=== PATIENT | female | born 1935 | race Caucasian/White ===

== ENCOUNTER 2018-07-21 09:57 | Inpatient (IN) | payer OTHER ==
[2018-07-21 10:17] LABS: Arterial Blood Carboxyhemoglob 0.6 % (0-1.5); Blood Gas Oxyhemoglobin 97.5 % (94-97); Blood O2 Saturation 99.2 % (92-98.5)
[2018-07-21] MEDS ORDERED: NA CHLORIDE 0.9% 1,000 ML ONE ×3 (10:22→11:52)
[2018-07-21 10:27] LABS: Absolute Lymphocytes (CBC) 1.5 K/uL (0.7-4.9); Absolute Monocytes 0.3 K/uL (0.1-1.3); Absolute Neutrophil 12.3 K/uL (1.8-8.0); Basophils % 0.3 % (0-1.3); Hematocrit 39.2 % (36.0-45.0); Lymphocytes % 10.3 % (15.3-44.8); MCV 91.8 fL (80-100); Monocytes % 2.1 % (3.3-12.3); RBC Red Blood Cell Count 4.27 M/uL (3.86-4.86)
[2018-07-21 10:28] LABS: Protime INR 1.08
--- NOTE | 2018-07-21 10:36 | RAD REPORT ---
EXAM DESCRIPTION: RAD - Chest Single View - 07/21/2018 10:27 am CLINICAL HISTORY: MALAISE Chest pain. COMPARISON: CHEST SINGLE VIEW dated 12/05/2015; CHEST SINGLE VIEW dated 12/04/2015; CHEST SINGLE VIEW da gretchen 12/23/2008; CHEST SINGLE VIEW dated 05/29/2004 FINDINGS: Portable technique limits examination quality. Emphysematous changes are present throughout the lungs. The heart is normal in size. No displaced fra ctures. IMPRESSION: COPD.
--- NOTE | 2018-07-21 10:37 | RAD REPORT ---
EXAM DESCRIPTION: RAD - Pelvis - 07/21/2018 10:27 am CLINICAL HISTORY: PAIN COMPARISON: No comparisons FINDINGS: The bones are osteopenic. No acute fracture or dislocation is seen. No aggressive marrow l esion.
--- NOTE | 2018-07-21 10:38 | RAD REPORT ---
EXAM DESCRIPTION: RAD - Knee Left 3 View - 07/21/2018 10:32 am CLINICAL HISTORY: PAIN COMPARISON: No comparisons FINDINGS: Diffuse osteopenia is seen. No acute fracture or dislocation identified. No significant elisha int effusion suspected.
[2018-07-21 10:44] LABS: Urine Blood 1+ (NEG); Urine Glucose NEGATIVE (NEG); Urine Protein NEGATIVE (NEG); Urine pH 5.5 (5.0-7.0)
[2018-07-21 10:50] LABS: Urine Bacteria 20-50 /HPF (<20); Urine Culture Reflex Order REFLEXED; Urine Mucus HEAVY /HPF (NONE SEEN); Urine RBC NONE SEEN /HPF (NONE SEEN)
[2018-07-21 11:04] LABS: ALT/SGPT 40 U/L (12-78); AST/SGOT 71 U/L (15-37); Albumin 3.7 g/dL (3.4-5.0); Alkaline Phosphatase 80 U/L (45-117); BUN Blood Urea Nitrogen 29 mg/dL (7-18); Bicarbonate 29 mmol/L (21-32); Bilirubin Direct 0.1 mg/dL (0-0.2); Bilirubin Total 0.4 mg/dL (0.2-1.0); Glucose Level 183 mg/dL (74-106); Lipase 92 U/L (73-393); Potassium 4.7 mmol/L (3.5-5.1); Protein, Total 7.6 g/dL (6.4-8.2); Sodium Level 137 mmol/L (136-145); Troponin (Emerg Dept Use Only) < 0.02 ng/mL (0.0-0.045)
[2018-07-21 11:08] LABS: Creatine Phosphokinase 1766 U/L (26-192)
--- NOTE | 2018-07-21 11:10 | RAD REPORT ---
EXAM DESCRIPTION: CT - [id number] - 07/21/2018 10:53 am CLINICAL HISTORY: Trauma, head and neck injury. PAIN COMPARISON: No comparisons TECHNIQUE: Axial 5 mm thick images of the head were obtained. Axial 2 mm thick images of the cervical spine were obtained with sagittal and coronal reconstruction images generated and reviewed. All CT scans are performed using dose optimization technique as appropriate and may include automated exposure control or mA/KV adjustment according to patient size. FINDINGS: CT HEAD WITHOUT CONTRAST: No acute hemorrhage, hydrocephalus or extra-axial collection is identified.Mild generalized brain atr ophy is present with mild periventricular and deep white matter chronic microvascular ischemic change s.No areas of brain edema or midline shift. The paranasal sinuses and mastoids are clear.The calvarium is intact. Small left frontal scalp hemato ma. CT CERVICAL SPINE WITHOUT CONTRAST: No fracture or subluxation.Mild midcervical degenerative spondylosis.No prevertebral soft tissues swe lling is identified. Heavy carotid atherosclerosis bilaterally. IMPRESSION: No acute intracranial or cervical spine findings.
[2018-07-21 11:29] LABS: Platelet Estimate ADEQ; Urine White Blood Cell Casts OK
[2018-07-21 11:30] LABS: Blood Morphology Comment NOT SEEN (NOT SEEN); Platelets, Giant FEW
--- NOTE | 2018-07-21 11:45 | ER ---
Nurse's Notes [facility] Name: Sabi Mederos Age: 82 yrs Sex: Female : 1935 Arrival Date: 07/21/2018 Time: 09:58 Bed 3 Private MD: Diagnosis: Hypothermia;Other sepsis Presentation: 07/21 09:58 Presenting complaint: EMS states: Pt found down by family member for unknown amount of ph time, found by EMS to be unresponsive, in prone position w/ head hyperextended backwards, HR in 30's , bruising noted to L side of face and chest, last seen by family last night before bed, normally A\T\O x 4 w/ intermittent confusion, hx of dementia, 0.5 atropine administered, HR improved to 50's. Transition of care: patient was not received from another setting of care. Onset of symptoms was July 21, 2018. Risk Assessment: Do you want to hurt yourself or someone else? Patient reports no desire to harm self or others. Initial Sepsis Screen: Does the patient meet any 2 criteria? No. Patient's initial sepsis screen is negative. Does the patient have a suspected source of infection? No. Patient's initial sepsis screen is negative. Care prior to arrival: Medication(s) given: atropine 0.5 IV initiated. 22 GA, in the right Glucose check: 22 Oxygen administered. 09:58 Acuity: YANA 1 ph 09:58 Method Of Arrival: EMS: [facility] ph Historical: - Allergies: 10:17 No Known Allergies; ph - Home Meds: 10:17 carvedilol 6.25 mg oral tab 1 tab 2 times per day [Active]; isosorbide mononitrate 30 ph mg Oral Tb24 1 tab once daily [Active]; aspirin 81 mg oral TbEC 1 tab twice a day [Active]; atorvastatin 80 mg Oral tab 1 tab once daily [Active]; Namenda 28 mg Oral 1 tab daily [Active]; donepezil 23 mg oral tab 1 tab once daily [Active]; amitriptyline 25 mg Oral tab 1 tab once daily [Active]; potassium chloride 10 mEq Oral cpER 1 cap 2 times per day [Active]; Lasix 40 mg Oral tab 1 tab once daily [Active]; levothyroxine 25 mcg tab 1 tab once daily [Active]; - PMHx: 10:17 CVA; Hypertension; Myocardial infarction; Dementia; ph - PSHx: 10:17 Heart stents; ph - Immunization history:: Adult Immunizations unknown. - Social history:: Smoking status: unknown. - Ebola Screening: : No symptoms or risks identified at this time. Screenin:06 Abuse screen: Denies threats or abuse. Denies injuries from another. Nutritional ph screening: No deficits noted. Tuberculosis screening: No symptoms or risk factors identified. Fall Risk None identified. Assessment: 10:00 Reassessment: Pt found to be apneic upon arrival, brown vomitus noted to chin, oxygen ph administered via ambu bag per ERP order, after bagging for approx 1 min pt more responsive w/ respirations at 12 bpm. 10:10 General: Appears uncomfortable, slender, Behavior is drowsy, listless, quiet. Pain: ph Unable to use pain scale. Patient is disoriented. Neuro: Level of Consciousness is awake, confused, lethargic, listless, Oriented to person. Cardiovascular: Capillary refill is sluggish in bilateral fingers Rhythm is sinus bradycardia. Respiratory: Airway is patent Respiratory effort is shallow, weak, Respiratory pattern is hypoventilation. GI: Abdomen is flat, non-distended, dried brown vomitus noted to chin. Derm: Skin is fragile, is thin, Skin is pale, Skin temperature is cold Bruising that is on left cheek and left jaw. 11:15 Reassessment: Patient appears in no apparent distress at this time. Patient and/or ph family updated on plan of care and expected duration. Pain level reassessed. Head and neck CT negative, C collar removed per ERP order, pt more alert w/ clearer speech, oriented to person and place, family at bedside, awaiting room assignment. 12:25 Reassessment: Patient appears in no apparent distress at this time. No changes from previously documented assessment. Dr Doll at bedside to speak w/ family, pt to be admitted to hospital for inpatient hospice care, pt is a DNR, DNI. 12:59 Reassessment: Report called to Js CAMPOS. Vital Signs: 10:04 BP 126 / 93; Pulse 46; Resp 12; Temp 85.8(C); ph 10:10 Pulse Ox 98% on NC; Weight 49.9 kg; ph 10:28 BP 122 / 36; Pulse 48; Resp 12; Temp 86.7; Pulse Ox 100% on 3 lpm NC; ph 11:19 BP 94 / 40; Pulse 48; Resp 12; Temp 87.4; ss 11:31 BP 97 / 38; Pulse 53; Resp 14; Temp 87.7; Pulse Ox 98% on 3 lpm NC; ph 11:58 BP 75 / 31; Pulse 52; Resp 16; Temp 88.4(C); Pulse Ox 100% on 3 lpm NC; ph 12:42 BP 67 / 32; Pulse 56; Resp 14; Temp 90.0; Pulse Ox 98% on 3 lpm NC; ph 10:28 corticore calles temp ph Vitals: 10:10 Cardiac Rhythm Assessment Sinus león. ph 11:58 Cardiac Rhythm Assessment Sinus león. ph ED Course: 09:58 Patient arrived in ED. ch 09:58 Liv Silva, RN is Primary Nurse. ph 09:58 Sampson Collado MD is Attending Physician. gs 10:03 EKG done, by sound recording technician. reviewed by Sampson Collado MD. at1 10:04 Triage completed. ph 10:06 Calles cath inserted, using sterile technique, 16 Fr., by ED staff, balloon inflated, to ph gravity drainage, urine specimen collected. Patient tolerated well. Maintain EMS IV. Dressing intact. Good blood return noted. Site clean \T\ dry. Gauge \T\ site: 22 RAC. 10:06 Arm band placed on. ph 10:09 Patient has correct armband on for positive identification. Placed in gown. Bed in low ph position. Call light in reach. Side rails up X2. car refinisher on. Pulse ox on. NIBP on. Warm blanket given. 10:10 Inserted saline lock: 22 gauge in left antecubital area, using aseptic technique. ph Missed attempt(s): 22 gauge in left hand. wrist. Bleeding controlled, band aid applied, catheter tip intact. Thermoregulation: Aziza blanket applied. 10:25 Thermoregulation: warm intravenous fluids. ph 10:26 X-ray completed. Portable x-ray completed in exam room. Patient tolerated procedure mh1 well. 10:27 Chest Single View XRAY In Process Unspecified. EDMS 10:27 Pelvis XRAY In Process Unspecified. EDMS 10:27 Knee Left 3 View XRAY In Process Unspecified. EDMS 10:49 CT completed. Patient tolerated procedure well. Patient moved to CT via stretcher. [email or web address] Patient moved back from CT. 10:53 CT Head C Spine In Process Unspecified. EDMS 11:43 Denver Doll MD is Hospitalizing Provider. gs 13:25 No provider procedures requiring assistance completed. Patient admitted, IV remains in ph place. Administered Medications: 10:24 Drug: NS 0.9% 1000 ml {Note: administered via fluid warmer.} Route: IV; Rate: 1 bolus; ph Site: left antecubital; 11:16 Follow up: Response: No adverse reaction; IV Status: Completed infusion ph 11:15 Drug: NS 0.9% 1000 ml {Note: administered via fluid warmer.} Route: IV; Rate: 1 bolus; ph Site: left antecubital; 11:55 Follow up: Response: No adverse reaction; IV Status: Completed infusion ph 11:56 Drug: NS 0.9% 1000 ml Route: IV; Rate: 1 bolus; Site: left antecubital; ph 12:45 Follow up: Response: No adverse reaction; IV Status: Completed infusion ph 12:24 Drug: Zosyn 3.375 grams Route: IVPB; Infused Over: 60 mins; Site: left antecubital; ph 13:25 Follow up: Response: No adverse reaction; IV Status: Completed infusion ph Outcome: 11:44 Decision to Hospitalize by Provider. gs 13:26 Patient left the ED. ph 13:26 Admitted to Tele accompanied by tech, family with patient, via stretcher, room 202, ph with oxygen, with chart, Report called to Js CAMPOS 13:26 critical 13:26 Instructed on the need for admit. Signatures: Dispatcher [employer] EDMS Cici Davis RN RN ch Harvey, Martha mh1 Kary Maddox RN RN Vy Ambriz, deep submergence vehicle crewmember EKG Tat1 Liv Silva RN RN Sampson Collado MD MD gs Garcia, Jessica jg6 Corrections: (The following items were deleted from the chart) 10:18 10:00 Reassessment: Pt found to be apneic upon arrival, oxygen administered via ambu ph bag per ERP order, after bagging for approx 1 min pt more responsive w/ respirations at 12 bpm ph 10:30 10:28 BP 122 / 36; Pulse 48bpm; Resp 10bpm; Pulse Ox 100% 2 lpm Nasal Cannula; Temp ss 86.6F; corticore calles temp; ss 10:30 10:28 BP 122 / 36; Pulse 48bpm; Resp 12bpm; Pulse Ox 100% 2 lpm Nasal Cannula; Temp ph 86.7F; corticore calles temp; ss 15:19 12:25 Reassessment: Patient appears in no apparent distress at this time. No changes ph from previously documented assessment. Dr Doll at bedside to speak w/ family ph
--- NOTE | 2018-07-21 11:45 | EDPHYS ---
Physician Documentation [facility] Name: Sabi Mederos Age: 82 yrs Sex: Female : 1935 Arrival Date: 07/21/2018 Time: 09:58 Bed 3 Private MD: ED Physician Sampson Collado HPI: 07/21 13:03 This 82 yrs old Female presents to ER via EMS with complaints of ams , found gs on floor. 13:03 The patient presents with confusion. Onset: The symptoms/episode began/occurred this gs morning, found on ground probably there overnight. Unable to obtain HPI due to patient distress. Historical: - Allergies: 10:17 No Known Allergies; ph - Home Meds: 10:17 carvedilol 6.25 mg oral tab 1 tab 2 times per day [Active]; isosorbide mononitrate 30 ph mg Oral Tb24 1 tab once daily [Active]; aspirin 81 mg oral TbEC 1 tab twice a day [Active]; atorvastatin 80 mg Oral tab 1 tab once daily [Active]; Namenda 28 mg Oral 1 tab daily [Active]; donepezil 23 mg oral tab 1 tab once daily [Active]; amitriptyline 25 mg Oral tab 1 tab once daily [Active]; potassium chloride 10 mEq Oral cpER 1 cap 2 times per day [Active]; Lasix 40 mg Oral tab 1 tab once daily [Active]; levothyroxine 25 mcg tab 1 tab once daily [Active]; - PMHx: 10:17 CVA; Hypertension; Myocardial infarction; Dementia; ph - PSHx: 10:17 Heart stents; ph - Immunization history:: Adult Immunizations unknown. - Social history:: Smoking status: unknown. - Ebola Screening: : No symptoms or risks identified at this time. ROS: 13:03 Unable to obtain ROS due to patient distress. gs Exam: 13:03 Eyes: Pupils equal round and reactive to light, extra-ocular motions intact. Lids and gs lashes normal. Conjunctiva and sclera are non-icteric and not injected. Cornea within normal limits. Periorbital areas with no swelling, redness, or edema. ENT: Nares patent. No nasal discharge, no septal abnormalities noted. Tympanic membranes are normal and external auditory canals are clear. Oropharynx with no redness, swelling, or masses, exudates, or evidence of obstruction, uvula midline. Mucous membranes moist. Neck: Trachea midline, no thyromegaly or masses palpated, and no cervical lymphadenopathy. Supple, full range of motion without nuchal rigidity, or vertebral point tenderness. No Meningismus. Chest/axilla: Normal chest wall appearance and motion. Nontender with no deformity. No lesions are appreciated. 13:03 Abdomen/GI: Soft, non-tender, with normal bowel sounds. No distension or tympany. No guarding or rebound. No evidence of tenderness throughout. Back: No spinal tenderness. No costovertebral tenderness. Full range of motion. Skin: Warm, dry with normal turgor. Normal color with no rashes, no lesions, and no evidence of cellulitis. MS/ Extremity: Pulses equal, no cyanosis. Neurovascular intact. Full, normal range of motion. 13:03 Constitutional: The patient appears alert, awake, skin cold 13:03 Head/face: Noted is hematoma, that is moderate, of the forehead. 13:03 Cardiovascular: Rate: bradycardic, Rhythm: regular, Pulses: thready, weak. 13:03 ECG was reviewed by the Attending Physician. 13:03 Respiratory: mild respiratory distress is noted, Respirations: prolonged exhalation, Breath sounds: no acute changes. 13:03 Neuro: Orientation: Not oriented to person, place, time, Cranial nerves: no acute changes, Motor: moves all fours. Vital Signs: 10:04 BP 126 / 93; Pulse 46; Resp 12; Temp 85.8(C); ph 10:10 Pulse Ox 98% on NC; Weight 49.9 kg; ph 10:28 BP 122 / 36; Pulse 48; Resp 12; Temp 86.7; Pulse Ox 100% on 3 lpm NC; ph 11:19 BP 94 / 40; Pulse 48; Resp 12; Temp 87.4; ss 11:31 BP 97 / 38; Pulse 53; Resp 14; Temp 87.7; Pulse Ox 98% on 3 lpm NC; ph 11:58 BP 75 / 31; Pulse 52; Resp 16; Temp 88.4(C); Pulse Ox 100% on 3 lpm NC; ph 12:42 BP 67 / 32; Pulse 56; Resp 14; Temp 90.0; Pulse Ox 98% on 3 lpm NC; ph 10:28 corticore calles temp ph MDM: 09:58 Patient medically screened. gs 13:03 Differential Diagnosis: CVA, electrolyte abnormality, intracranial bleed, sepsis. Data gs reviewed: vital signs, nurses notes. Response to treatment: the patient's symptoms have mildly improved after treatment. Physician consultation: Denver Doll MD and will see patient in ED. 07/21 10:01 Order name: Basic Metabolic Panel; Complete Time: 11:18 07/21 10:01 Order name: Blood Culture Adult (2) 07/21 10:01 Order name: CBC with Diff 07/21 10:01 Order name: CPK; Complete Time: 11:18 07/21 10:01 Order name: Lactate; Complete Time: 11: 07/21 10:01 Order name: LFT's; Complete Time: 11: 07/21 10:01 Order name: Lipase; Complete Time: 11:18 07/21 10:01 Order name: Procalcitonin; Complete Time: 11:18 07/21 10:01 Order name: Protime (+inr); Complete Time: 11: 07/21 10:01 Order name: Troponin (emerg Dept Use Only); Complete Time: 11: 07/21 10:01 Order name: Urine Microscopic Only; Complete Time: 11: 07/21 10:01 Order name: ABG; Complete Time: 11: 07/21 10:34 Order name: CBC Smear Scan EDPR 07/21 10:37 Order name: Urine Dipstick--Ancillary (enter results); Complete Time: 11:18 07/21 10:01 Order name: Chest Single View XRAY; Complete Time: 11:18 07/21 10:01 Order name: Accucheck; Complete Time: 10: 07/21 10:01 Order name: Cardiac monitoring; Complete Time: 10: 07/21 10:01 Order name: EKG - Nurse/Tech; Complete Time: : 07/21 10:01 Order name: IV Saline Lock - Large Bore; Complete Time: 10: 07/21 10:01 Order name: CT Head C Spine; Complete Time: 11:18 07/21 10:01 Order name: Pelvis XRAY; Complete Time: 11: 07/21 10:01 Order name: Knee Left 3 View XRAY; Complete Time: 11:18 07/21 10:53 Order name: Urine Culture EDPR 07/21 11:21 Order name: TSH 07/21 11:23 Order name: EKG Electrocardiogram EDPR 07/21 11:52 Order name: NPO; Complete Time: 11:56 EDPR 07/21 10:01 Order name: Labs collected and sent; Complete Time: 10:22 07/21 10:01 Order name: O2 Per Protocol; Complete Time: 10: 07/21 10:01 Order name: O2 Sat Monitoring; Complete Time: 10:22 07/21 10:01 Order name: Urine Dipstick-Ancillary (obtain specimen); Complete Time: 10:50 gs EC:03 Rate is 47 beats/min. Rhythm is regular. VA interval is normal. QRS interval is normal. gs QT interval is prolonged. No ST changes noted. Clinical impression: Sinus bradycardia. Interpreted by me. Administered Medications: 10:24 Drug: NS 0.9% 1000 ml {Note: administered via fluid warmer.} Route: IV; Rate: 1 bolus; ph Site: left antecubital; 11:16 Follow up: Response: No adverse reaction; IV Status: Completed infusion ph 11:15 Drug: NS 0.9% 1000 ml {Note: administered via fluid warmer.} Route: IV; Rate: 1 bolus; ph Site: left antecubital; 11:55 Follow up: Response: No adverse reaction; IV Status: Completed infusion ph 11:56 Drug: NS 0.9% 1000 ml Route: IV; Rate: 1 bolus; Site: left antecubital; ph 12:45 Follow up: Response: No adverse reaction; IV Status: Completed infusion ph 12:24 Drug: Zosyn 3.375 grams Route: IVPB; Infused Over: 60 mins; Site: left antecubital; ph 13:25 Follow up: Response: No adverse reaction; IV Status: Completed infusion ph Disposition: 13:03 Critical Care:. Disposition: 07/21/18 11:44 Hospitalization ordered by Denver Doll for Inpatient Admission. Preliminary diagnosis are Hypothermia, Other sepsis. - Bed requested for Telemetry/MedSurg (Inpatient). - Status is Inpatient Admission. ph - Condition is Stable. - Problem is new. - Symptoms have improved. UTI on Admission? Yes Critical care time excluding procedures: 13:03 Critical care time: Bedside Care: 10 minutes, Consultation: 10 minutes, Family gs Intervention: 10 minutes. Total time: 30 minutes Signatures: Dispatcher [employer] Kary Barth RN RN Liv Silva RN RN ColladoSampson MD MD gs Corrections: (The following items were deleted from the chart) 12:21 11:44 Hospitalization Ordered by Denver Doll MD for Inpatient Admission. Preliminary ss diagnosis is Hypothermia; Other sepsis. Bed requested for Telemetry/MedSurg (Inpatient). Status is Inpatient Admission. Condition is Stable. Problem is new. Symptoms have improved. UTI on Admission? Yes. 13:26 12:21 07/21/2018 11:44 Hospitalization Ordered by Denver Doll MD for Inpatient Admission. Preliminary diagnosis is Hypothermia; Other sepsis. Bed requested for Telemetry/MedSurg (Inpatient). Status is Inpatient Admission. Condition is Stable. Problem is new. Symptoms have improved. UTI on Admission? Yes. ss
[2018-07-21] MEDS ORDERED: ACETAMINOPHEN 500 MG TAB PO PRN (11:46)
[2018-07-21] MEDS: NA CHLORIDE 0.9% 1,000 ML IV SCH ×3 (12:00→21:17)
[2018-07-21] MEDS ORDERED: PIPER/TAZO/NS 3.375gm 3.375 GM/100 ML BAG ONE (12:08)
[2018-07-21] MEDS ORDERED: SCOPOLAMINE HYDROBROMIDE PATCH TD SCH (14:00)
[2018-07-21] MEDS: MORPHINE 2 MG/ML SYR IV PRN ×2 (14:07→16:06)
[2018-07-21] MEDS ORDERED: MORPHINE 2 MG/ML SYR ONE (16:09)
[2018-07-21] MEDS ORDERED: CEFTRIAXONE/SWI 1gm 1 GM/10 ML SYR IV SCH (21:00)
[2018-07-21] MEDS: LORazepam 2 MG/ML VIAL IV PRN (21:24)
[2018-07-22] MEDS: MORPHINE 2 MG/ML SYR IV PRN ×3 (05:35→19:46)
[2018-07-22] MEDS: NA CHLORIDE 0.9% 1,000 ML IV SCH ×2 (08:00→18:00)
--- NOTE | 2018-07-22 11:00 | EKG ---
Test Date: 2018-07-21 Test Time: 09:48:09 Senior Manager Asset Protection: HANANE MEASUREMENT RESULTS: Intervals: Rate: 47 KS: 182 QRSD: 130 QT: 600 QTc: 531 [place]: P: 63 KS: 182 QRS: 48 T: 63 INTERPRETIVE STATEMENTS: Sinus bradycardia Possible Left atrial enlargement Left ventricular hypertrophy with QRS widening Abnormal ECG Compared to ECG 02/03/2016 11:47:41 Sinus rhythm no longer present Early repolarization no longer present Electronically Signed On 07-22-18 10:55:57 CDT by Cricket Das
--- NOTE | 2018-07-22 23:27 | HP ---
Date of Admission: 07/21/2018 Reason For Admission: Falling on the floor, found after hours in the bathroom. History Of Present Illness: The patient is an 82-year-old severely demented lady who has lost a sign ificant amount of weight in last 6 months, who I just recently placed on hospice care with family's p ermission less than a week ago. Unfortunately, fell in the bathroom, was found on the floor for hour s after she fell. She was hypothermic when she came to hospital and hypertensive. According to destini ent's wishes and the family's wishes, patient was not placed on anything more than IV fluids. We neymar ided any pressure increasing medications at this point following her wishes of not resuscitation and I met with the family at lunchtime just a couple of hours after admission to the emergency room. Dis cussed the plan and wished to continue hospice care in the hospital, which they are used to and they are appreciative of. Past Medical History: Severe dementia. Social History: Nonsmoker. Does not consume alcohol. Allergies: NO KNOWN DRUG ALLERGIES. Medications: List of medications at this point with hospice, she has stopped all the dementia medica tions. Physical Examination: Vital Signs: Temperature 90; blood pressure 67/32, increase to 72/36; pulse oximetry 88%. When I sa w her in the emergency room during this blood pressure, she was lethargic, but awake, recognize me be cause I have seen her for long duration. Otherwise, she is totally disoriented. Chest: Decreased breath sounds. Heart: Regular. Abdomen: No guarding, no rebound, no rigidity. Neurological: Able to have spontaneous movement of the limbs. Pupils are reactive to light. Lab Examination: White count of 14,000. Hemoglobin stable, normal. BUN 29, creatinine 2.6. CPK of . Assessment And Plan: Hypothermia, hypertension, severe dementia. Prognosis poor. She may not last more than a day or 2, agreeable with inpatient hospice. I have written orders for morphine and Ativa n to keep her comfortable. Scopolamine to reduce secretions of the throat. The patient's family is appreciative of all the care provided so far and they are happy that they can be with her in the room that is why she is placed on a regular floor, not in ICU. RVD/MODL Voice ID: [id number]
--- NOTE | 2018-07-22 23:28 | PN ---
Subjective: The patient is still very confused and disoriented, weak, lying in the bed. At her base line she has some dementia. She comes in the hospital for hypothermia and hypotension with acute grisel al failure. Objective: Vital Signs: Blood pressure improved slightly, now up to 98/45 on IV fluids. She is sti ll lethargic and weak. Chest: Clear. Heart: Regular. Abdomen: No guarding, no rebound, no rigidity. General: She is very weak, not able to do any ambul ation. Assessment And Plan: On hospice for hypotension, hypokalemia, renal failure, and Alzheimer disease. The patient's family is very cooperative and understanding that if she makes it through this episode of hypotension, hypothermia, and renal failure she will go home back on hospice, and if she does not make it through we have 5 days in the hospital here and I discussed with the patient's family, her g randdaughter who is on bedside, and she will discuss with her mother and aunt. RVD/MODL Voice ID: [id number] Report ID: [id number]
[2018-07-23] MEDS: NA CHLORIDE 0.9% 1,000 ML IV SCH ×2 (04:00→14:00)
[2018-07-23] MEDS: MORPHINE 2 MG/ML SYR IV PRN ×4 (07:06→15:19)
[2018-07-23] MEDS: LORazepam 2 MG/ML VIAL IV PRN ×4 (07:28→15:19)
--- NOTE | 2018-07-23 23:29 | PN ---
Ms. Mederos now is comatose, unable to be aroused by painful stimulus. She also has oxygen on, but is still hypoxic at about 80% on 3 L nasal cannula. There is no movement on painful stimulus. She has rapid breathing, at this point abdominal thoracic rapid breathing. No signs of pauses, and neurologically, she is fully comatose. Assessment And Plan: I have talked to family at this point to remove oxygen which is keeping her alive longer and increasing her agony. The patient's family does not want her to suffer any longer. They want to remove oxygen so we will take the oxygen off and hopefully within 24 hours, she may pass away as expected. Change to Dischage/ summary: within an hour of me seeing the patient, she as expected. RVD/MODL Voice ID: [id number] Report ID: [id number]
== END 2018-07-23 15:43 | disposition expired | DRG 951 ==
LOC: ER 09:57 → UNDOADMIN 11:45 → ERHOLD 11:45 → 2ND 13:01
PROVIDERS: ADMIT Internal Medicine; ATTEND Internal Medicine
DX: Z51.5 Encounter for palliative care (principal); F03.90 Unspecified dementia, unspecified severity, without behavioral disturbance, psychotic disturbance, mood disturbance, and anxiety; I95.9 Hypotension, unspecified; E87.6 Hypokalemia; N19 Unspecified kidney failure; G30.9 Alzheimer's disease, unspecified; F02.80 Dementia in other diseases classified elsewhere, unspecified severity, without behavioral disturbance, psychotic disturbance, mood disturbance, and anxiety; I10 Essential (primary) hypertension; T68.XXXA Hypothermia, initial encounter
CPT/HCPCS: 36415; 51702; 70450; 71045; 72125; 72170; 80048; 80076; 81003; 81015; 82550; 82805; 83605; 83690; 84145; 84443; 84484; 85025; 85610; 87040; 87086; 87088; 93005; 96361; 96365; 99291; 99292; J2270; J2543; J7030